=== PATIENT | male | born 1990 | race Two or more races ===

== ENCOUNTER → 2016-09-21 | Emergency (ER) | payer MEDICAID ==
[~2016-09-21] VITALS: Ht 180.3 cm; Wt 78.5 kg
[~2016-09-21] MED LIST: IV NS 0.9% 1,000 ML BAG IV ONE; IV NS 0.9% 1,000 ML ONE; IV SET PRIMARY PUMP SET 1 EA INFUS.SET MC ONE; MERC50TA; MESA400C; MORPHINE SULFATE INJ 2 MG/ML DISP.SYRIN IV ONE; MORPHINE SULFATE INJ 2 MG/ML DISP.SYRIN ONE; ONDANSETRON HCL/PF 4 MG/2 ML VIAL IVP ONE; ONDANSETRON HCL/PF 4 MG/2 ML VIAL ONE
[2016-09-21 08:27] LABS: BASOPHILS % (AUTO) 0.1 % (0.0-2.0); DIFF TOTAL % 100 %; EOSINOPHILS % (AUTO) 0.3 % (0.0-6.0); HEMATOCRIT 45 % (39-51); LYMPHOCYTES # (AUTO) 0.3 /CMM (0.8-4.8); LYMPHOCYTES % (AUTO) 2.9 % (20.0-44.0); MEAN CORPUSCULAR HEMOGLOBIN 31 PG (26.0-33.0); MEAN CORPUSCULAR HGB CONC 33 g/dl (31.0-36.0); MEAN CORPUSCULAR VOLUME 94 fL (80-96); MONOCYTES # (AUTO) 0.3 /CMM (0.1-1.30); MONOCYTES % (AUTO) 2.8 % (2.0-12.0); NEUTROPHILS # (AUTO) 8.6 /CMM (1.8-8.9); NEUTROPHILS % (AUTO) 93.9 % (43.0-81.0); PLATELET COUNT (AUTO) 164 /CMM (150-450); RED BLOOD CELL COUNT(AUTO) 4.79 MIL/uL (4.5-6.0); WHITE BLOOD COUNT (AUTO) 9.2 K/uL (4.3-11.0)
[2016-09-21 08:45] LABS: ALBUMIN 4.1 g/dL (3.4-5.0); BILIRUBIN,DIRECT 0.2 mg/dL (0.0-0.2); BILIRUBIN,TOTAL 4.7 mg/dL (0.2-1.0); CALCIUM, SERUM 9.3 mg/dL (8.5-10.1); CREATININE 0.9 mg/dL (0.6-1.3); INDIRECT BILIRUBIN 4.5 mg/dL (0.0-1.1); POTASSIUM 3.7 mmol/L (3.5-5.1); TOTAL PROTEIN, SERUM 7.7 g/dL (6.4-8.2)
[2016-09-21 10:17] VITALS: BP 103/70
== END | disposition home or self-care (01) ==
LOC: ER 07:48
DX: R11.2 Nausea with vomiting, unspecified (principal); K51.90 Ulcerative colitis, unspecified, without complications; F41.9 Anxiety disorder, unspecified
CPT/HCPCS: 36415; 80048-TC; 80076-TC; 83690-TC; 85025-TC; A4606; J2270; J2405; J7030; Z7610

== ENCOUNTER 2017-04-06 19:46 | Emergency (ER) | payer MEDICAID ==
[~2017-04-06] VITALS: Ht 180.3 cm; Wt 72.6 kg
[~2017-04-06 19:46] MED LIST changes: -IV NS 0.9% 1,000 ML BAG IV ONE; -IV NS 0.9% 1,000 ML ONE; -IV SET PRIMARY PUMP SET 1 EA INFUS.SET MC ONE; -MORPHINE SULFATE INJ 2 MG/ML DISP.SYRIN IV ONE; -MORPHINE SULFATE INJ 2 MG/ML DISP.SYRIN ONE; -ONDANSETRON HCL/PF 4 MG/2 ML VIAL IVP ONE; -ONDANSETRON HCL/PF 4 MG/2 ML VIAL ONE
[2017-04-06 20:42] VITALS: BP 113/58
== END 2017-04-06 20:46 | disposition home or self-care (01) ==
LOC: ER 19:51
DX: J02.9 Acute pharyngitis, unspecified (principal); F41.9 Anxiety disorder, unspecified
CPT/HCPCS: A4606; Z7610

== ENCOUNTER 2018-01-30 06:35 | Emergency (ER) | payer MEDICAID, OTHER ==
[~2018-01-30] VITALS: Ht 180.3 cm; Wt 77.1 kg
[2018-01-30 06:38] VITALS: BP 124/68
== END 2018-01-30 07:00 ==
LOC: ER 06:37
DX: Z04.1 Encounter for examination and observation following transport accident (principal); V89.2XXA Person injured in unspecified motor-vehicle accident, traffic, initial encounter; Y93.89 Activity, other specified; Y92.410 Unspecified street and highway as the place of occurrence of the external cause; Y99.8 Other external cause status
CPT/HCPCS: 99283; A4606; Z7610

== ENCOUNTER 2018-11-03 15:08 | Emergency (ER) | payer MEDICAID ==
[~2018-11-03] VITALS: Ht 180.3 cm; Wt 79.4 kg
[2018-11-03 15:24] VITALS: BP 119/72
[2018-11-03] MEDS ORDERED: DEXAMETHASONE SOD PHOSPHATE 10 MG/ML VIAL IM ONE (16:00)
[2018-11-03] MEDS ORDERED: DEXAMETHASONE SOD PHOSPHATE 10 MG/ML VIAL ONE (16:01)
--- NOTE | 2018-11-03 17:04 | NUR ---
Patient discharged to home in stable condition. Written and verbal after care instructions given. Patient verbalizes understanding of instruction.
== END 2018-11-03 17:05 | disposition home or self-care (01) ==
LOC: ER 15:13
DX: J03.90 Acute tonsillitis, unspecified (principal); Z60.2 Problems related to living alone; Z79.899 Other long term (current) drug therapy
CPT/HCPCS: 87070; 87880; 96372; 99283; J1100; 86403-TC

== ENCOUNTER 2018-11-17 12:22 | Emergency (ER) | payer MEDICAID, OTHER ==
[~2018-11-17] VITALS: Ht 180.3 cm; Wt 73.9 kg
--- NOTE | 2018-11-17 13:00 | NUR ---
patient presented to the ER c/o diarrhea, on room air, breathing evenly and unlabored. Connected to the monitor and pulse ox. Kept comfortable, will continue to monitor accordingly.
[2018-11-17] MEDS ORDERED: IV NS 0.9% 1,000 ML BAG IV ONE (13:30)
[2018-11-17] MEDS ORDERED: MORPHINE SULFATE INJ 2 MG/ML DISP.SYRIN IV ONE (13:30)
[2018-11-17] MEDS ORDERED: ONDANSETRON HCL/PF 4 MG/2 ML VIAL IVP ONE (13:30)
[2018-11-17 13:43] LABS: BASOPHILS # (AUTO) 0.1 /CMM (0.0-0.2); BASOPHILS % (AUTO) 0.5 % (0.0-2.0); EOSINOPHILS % (AUTO) 7.4 % (0.0-6.0); HEMATOCRIT 47 % (39-51); HEMOGLOBIN 15.9 g/dL (13.5-17.5); LYMPHOCYTES # (AUTO) 1.1 /CMM (0.8-4.8); LYMPHOCYTES % (AUTO) 10.2 % (20.0-44.0); MEAN CORPUSCULAR HGB CONC 34 g/dl (31.0-36.0); MEAN CORPUSCULAR VOLUME 90 fL (80-96); MONOCYTES # (AUTO) 1.6 /CMM (0.1-1.30); MONOCYTES % (AUTO) 14.8 % (2.0-12.0); NEUTROPHILS # (AUTO) 7.4 /CMM (1.8-8.9); NEUTROPHILS % (AUTO) 67.1 % (43.0-81.0); PLATELET COUNT (AUTO) 201 /CMM (150-450); RED BLOOD CELL COUNT(AUTO) 5.28 MIL/uL (4.5-6.0)
[2018-11-17] MEDS ORDERED: methylPREDNISolone SOD SUCC 125 MG/2ML VIAL ONE (13:55)
[2018-11-17] MEDS ORDERED: ONDANSETRON HCL/PF 4 MG/2 ML VIAL ONE (13:55)
[2018-11-17] MEDS ORDERED: MORPHINE SULFATE INJ 4 MG/ML DISP.SYRIN ONE (13:56)
[2018-11-17] MEDS ORDERED: methylPREDNISolone SOD SUCC 125 MG/2ML VIAL IV ONE (14:00)
[2018-11-17 14:04] LABS: ALBUMIN 3.4 g/dL (3.4-5.0); BILIRUBIN,DIRECT 0.2 mg/dL (0.0-0.2); BILIRUBIN,TOTAL 1.1 mg/dL (0.2-1.0); TOTAL PROTEIN, SERUM 7.5 g/dL (6.4-8.2)
--- NOTE | 2018-11-17 14:16 | NUR ---
urine collected and sent to lab.
[2018-11-17 14:20] LABS: APPEARANCE,URINE Clear (CLEAR); BILIRUBIN,URINE MODERATE (NEGATIVE); BLOOD, URINE Trace-intact Ery/uL (NEGATIVE); COLOR,URINE Dark Yellow (YELLOW); KETONES,URINE Trace (NEGATIVE); LEUKOCYTE ESTERASE ,URINE Negative (NEGATIVE); NITRITE, URINE Negative (NEGATIVE); PROTEIN,URINE 30 mg/dl (NEGATIVE); UGLUCOSE Negative (NEGATIVE); UROBILINOGEN,URINE 0.2 EU/dL (0.2)
[2018-11-17 14:34] LABS: BACTERIA,URINE Few /HPF (None Seen); MUCUS,URINE Many /LPF (None Seen); SQUAMOUS EPITHELIAL CELL,UR Rare /HPF (None Seen); WBC,URINE 0-2 /HPF (0-3)
[2018-11-17 15:13] VITALS: BP 122/66
--- NOTE | 2018-11-17 15:14 | NUR ---
Patient discharged to home in stable condition. Written and verbal after care instructions given. Patient verbalizes understanding of instruction.IV removed. Catheter intact and site benign. Pressure and 4x4 applied to site. No bleeding noted.
== END 2018-11-17 15:13 | disposition home or self-care (01) ==
LOC: ER 12:28
DX: R19.7 Diarrhea, unspecified (principal); K51.90 Ulcerative colitis, unspecified, without complications; Z60.2 Problems related to living alone
CPT/HCPCS: 36415; 80048; 80076; 81001; 83690; 85025; 96361; 96374; 96375; 99283; J2270; J2405; J2930; J7030; 81000-TC

== ENCOUNTER 2018-12-31 15:48 | Emergency (ER) | payer MEDICAID ==
[~2018-12-31] VITALS: Ht 180.3 cm; Wt 72.1 kg
--- NOTE | 2018-12-31 16:00 | NUR ---
PT PRESENTED TO THE ER WITH A C/O BLOODY STOOL W/ ABD PAIN. PT STATED THAT IT STARTED OUT DARK BROWN AND WAS SRIDHAR BLOOD TODAY. PT AMBULATED TO ER #3 WITH A STEADY GAIT. PT WAS PLACED ON THE MONITOR AND CONITNUOUS PULSE OX.
[2018-12-31] MEDS ORDERED: MORPHINE SULFATE INJ 2 MG/ML DISP.SYRIN IV ONE (16:30)
[2018-12-31] MEDS ORDERED: IV NS 0.9% 1,000 ML BAG IV ONE (16:30)
[2018-12-31] MEDS ORDERED: ONDANSETRON HCL/PF 4 MG/2 ML VIAL IVP ONE (16:30)
[2018-12-31 16:39] LABS: BASOPHILS % (AUTO) 0.2 % (0.0-2.0); EOSINOPHILS % (AUTO) 0.2 % (0.0-6.0); HEMATOCRIT 45 % (39-51); HEMOGLOBIN 14.7 g/dL (13.5-17.5); LYMPHOCYTES # (AUTO) 0.7 /CMM (0.8-4.8); LYMPHOCYTES % (AUTO) 9.9 % (20.0-44.0); MEAN CORPUSCULAR HGB CONC 33 g/dl (31.0-36.0); MEAN CORPUSCULAR VOLUME 91 fL (80-96); MONOCYTES # (AUTO) 1.3 /CMM (0.1-1.30); MONOCYTES % (AUTO) 16.8 % (2.0-12.0); NEUTROPHILS # (AUTO) 5.4 /CMM (1.8-8.9); NEUTROPHILS % (AUTO) 72.9 % (43.0-81.0); PLATELET COUNT (AUTO) 230 /CMM (150-450); WHITE BLOOD COUNT (AUTO) 7.5 K/uL (4.3-11.0)
[2018-12-31] MEDS ORDERED: methylPREDNISolone SOD SUCC 125 MG/2ML VIAL ONE (16:39)
[2018-12-31] MEDS ORDERED: ONDANSETRON HCL/PF 4 MG/2 ML VIAL ONE (16:39)
[2018-12-31] MEDS ORDERED: MORPHINE SULFATE INJ 4 MG/ML DISP.SYRIN ONE (16:39)
[2018-12-31 16:49] LABS: CALCIUM, SERUM 8.6 mg/dL (8.5-10.1); CREATININE 0.9 mg/dL (0.6-1.3); POTASSIUM 4.3 mmol/L (3.5-5.1)
[2018-12-31] MEDS ORDERED: MERC50TA PO (17:00)
[2018-12-31] MEDS ORDERED: MESA400C2 PO (17:00)
[2018-12-31] MEDS ORDERED: methylPREDNISolone SOD SUCC 125 MG/2ML VIAL IV ONE (17:00)
[2018-12-31] MEDS ORDERED: PRED20TA PO (17:00)
--- NOTE | 2018-12-31 17:46 | NUR ---
IV removed. Catheter intact and site benign. Pressure and 4x4 applied to site. No bleeding noted. Patient discharged to home in stable condition. Written and verbal after care instructions given. Patient verbalizes understanding of instruction AND RX. PT AMBULATED OUT WITH A STEADY GAIT. VSS. NAD NOTED.
[2018-12-31 17:47] LABS: BAND % (MANUAL) 4 % (0.0-5.0); EOSINOPHILS % (MANUAL) 1 % (0-4); LYMPHOCYTES % (MANUAL) 6 % (16-48); MONOCYTES % (MANUAL) 13 % (0-11.0); NEUTROPHILS % (MANUAL) 76 (42-76)
--- NOTE | 2018-12-31 17:48 | NUR ---
PT WAS INSTRUCTED NOT TO DRIVE.
[2018-12-31 17:50] VITALS: BP 127/75
[2018-12-31 18:21] LABS: OCCULT BLOOD STOOL NEGATIVE (NEGATIVE)
== END 2018-12-31 17:55 | disposition home or self-care (01) ==
LOC: ER 15:50
DX: K51.90 Ulcerative colitis, unspecified, without complications (principal); Z60.2 Problems related to living alone
CPT/HCPCS: 36415; 80048; 82272; 85025; 85730; 96374; 96375; 99283; J2270; J2405; J2930; J7030

== ENCOUNTER 2019-01-13 21:10 | Inpatient (IN) | payer MEDICAID ==
[~2019-01-13] VITALS: Ht 180.3 cm; Wt 72.9 kg
[~2019-01-13 21:10] MED LIST changes: -MERC50TA; +MERC50TA PO; -MESA400C; +MESA400C2 PO; +PRED20TA PO
--- NOTE | 2019-01-13 22:23 | NUR ---
BIBS. C.O "HAVING ABDOMINAL PAIN FOR AROUND X2 WEEKS" -SOB VSS AOX4. AMBULATORY -N.V
[2019-01-13] MEDS ORDERED: ONDANSETRON HCL/PF 4 MG/2 ML VIAL ONE (22:53)
[2019-01-13] MEDS ORDERED: MORPHINE SULFATE INJ 2 MG/ML DISP.SYRIN ONE (22:54)
[2019-01-13 22:59] LABS: APPEARANCE,URINE Clear (CLEAR); BILIRUBIN,URINE SMALL (NEGATIVE); BLOOD, URINE Negative Ery/uL (NEGATIVE); COLOR,URINE Amber (YELLOW); KETONES,URINE 40 (NEGATIVE); LEUKOCYTE ESTERASE ,URINE Negative (NEGATIVE); NITRITE, URINE Negative (NEGATIVE); PROTEIN,URINE 30 mg/dl (NEGATIVE); UGLUCOSE Negative (NEGATIVE); UROBILINOGEN,URINE 0.2 EU/dL (0.2)
[2019-01-13] MEDS ORDERED: ONDANSETRON HCL/PF - ER 4 MG/2 ML VIAL IV ONE (23:00)
[2019-01-13] MEDS ORDERED: MORPHINE SULFATE INJ 2 MG/ML DISP.SYRIN IV ONE (23:00)
[2019-01-13] MEDS ORDERED: IV NS 0.9% 1,000 ML BAG IV ONE (23:00)
[2019-01-13 23:05] LABS: BASOPHILS % (AUTO) 0.2 % (0.0-2.0); EOSINOPHILS % (AUTO) 2.9 % (0.0-6.0); HEMATOCRIT 44 % (39-51); HEMOGLOBIN 14.6 g/dL (13.5-17.5); LYMPHOCYTES # (AUTO) 1.3 /CMM (0.8-4.8); LYMPHOCYTES % (AUTO) 7.1 % (20.0-44.0); MEAN CORPUSCULAR HGB CONC 33 g/dl (31.0-36.0); MEAN CORPUSCULAR VOLUME 91 fL (80-96); MONOCYTES # (AUTO) 1.8 /CMM (0.1-1.30); NEUTROPHILS # (AUTO) 14.1 /CMM (1.8-8.9); NEUTROPHILS % (AUTO) 79.8 % (43.0-81.0); PLATELET COUNT (AUTO) 230 /CMM (150-450); RED BLOOD CELL COUNT(AUTO) 4.85 MIL/uL (4.5-6.0); WHITE BLOOD COUNT (AUTO) 17.7 K/uL (4.3-11.0)
[2019-01-13 23:14] LABS: CALCIUM, SERUM 8.7 mg/dL (8.5-10.1); CREATININE 0.7 mg/dL (0.6-1.3); POTASSIUM 3.2 mmol/L (3.5-5.1)
[2019-01-13 23:20] LABS: ALBUMIN 2.9 g/dL (3.4-5.0); BILIRUBIN,DIRECT 0.2 mg/dL (0.0-0.2); BILIRUBIN,TOTAL 1.3 mg/dL (0.2-1.0); TOTAL PROTEIN, SERUM 6.9 g/dL (6.4-8.2)
[2019-01-14] LABS: BACTERIA,URINE Few /HPF (None Seen); RBC,URINE 0-2 /HPF (0-2); SQUAMOUS EPITHELIAL CELL,UR Few /HPF (None Seen)
[2019-01-14 00:01] LABS: MUCUS,URINE Moderate /LPF (None Seen)
[2019-01-14] MEDS ORDERED: POTASSIUM CHLORIDE 20 MEQ TAB.PRT.SR PO ONE (01:00)
[2019-01-14] MEDS ORDERED: FLAGYL/NS RTU 500 MG/100 ML PIGGYBACK IV ONE (01:00)
[2019-01-14] MEDS ORDERED: methylPREDNISolone SOD SUCC 125 MG/2ML VIAL IV ONE (01:00)
--- NOTE | 2019-01-14 01:00 | NUR ---
CALLED RN SUP FOR M/S BED
--- NOTE | 2019-01-14 01:04 | NUR ---
PT ASSIGNED TO BED 207-1
--- NOTE | 2019-01-14 01:09 | NUR ---
CALLED [facility] FOR PANEL ADMISSION. WAITING FOR BAKERY CLERK HELLER CALL BACK.
--- NOTE | 2019-01-14 01:22 | NUR ---
2ND CALL TO [facility] FOR PANEL ADMISSION. WAITING FOR DIPLOMATIC INTERPRETER HELLER CALL BACK.
--- NOTE | 2019-01-14 01:25 | NUR ---
ANNA HELLER SPEAKING TO DR. GRACIA REGARDING ADMISSION/ PLAN OF CARE.
[2019-01-14] MEDS ORDERED: LEVOFLOXACIN 750 MG /D5W 150ML PIGGYBACK IV ONE (01:30)
--- NOTE | 2019-01-14 01:33 | NUR ---
REPORT GIVEN TO LAUREANO YANEZ.
[2019-01-14] MEDS ORDERED: HYDROCODONE/APAP 5/325MG 1 EACH TABLET PO PRN (02:00)
[2019-01-14] MEDS ORDERED: MAGNESIUM HYDROXIDE 30 ML UDC PO PRN (02:00)
[2019-01-14] MEDS ORDERED: MAG HYDROX/AL HYDROX/SIMETH 30 ML UDC PO PRN (02:00)
[2019-01-14] MEDS ORDERED: Z GUARD REMEDY 2 OZ OINT TP PRN (02:00)
[2019-01-14] MEDS ORDERED: ACETAMINOPHEN 325 MG TABLET PO PRN (02:00)
[2019-01-14] MEDS ORDERED: ONDANSETRON HCL/PF 4 MG/2 ML VIAL IVP PRN (02:00)
[2019-01-14] MEDS ORDERED: MORPHINE SULFATE INJ 2 MG/ML DISP.SYRIN IV PRN (02:00)
--- NOTE | 2019-01-14 02:00 | NUR ---
MS SENIOR ACCOUNT MANAGER NOTES Received patient from ER via wheelchair accompanied by 1 ER staff. Admitted to MS 207-2 due to abdominal pain under the service of ANNA Rogers. Transferred to bed comfortably. Admission routine done. Belongings inventory completed by the assigned GASOLINE POWER SHOVEL OPERATOR. Assisted patient to change with hospital gown. With disseminated tattoos, patient claimed no skin issues identified. With complaints of abdominal pain, managed with pain medication received from ER. With on going Flagyl noted with peripheral IV line line LFA G#20 infusing well as ordered. Admission orders noted and carried out. Kept clean, dry and comfortable, call light within easy reach. Will continue to monitor accordingly.
[2019-01-14] MEDS: IV NS 0.9% 1,000 ML IV PRN ×2 (02:25→20:38)
[2019-01-14] MEDS: LEVOFLOXACIN 750 MG /D5W 150ML 750 MG in PREMIX 1 EA IV SCH (02:46)
[2019-01-14] MEDS ORDERED: METRONIDAZOLE 500MG/ NS 100ML 100 ML IV ONE (04:31)
[2019-01-14] MEDS: METRONIDAZOLE 500MG/ NS 100ML 500 MG in PREMIX 1 EA IV SCH ×3 (05:02→17:49)
--- NOTE | 2019-01-14 06:19 | NUR ---
MS RN CLOSING NOTES Patient asleep at this time. Keep on NPO, offered ice chips for dry mouth. Patient had shower by himself. All due meds given as ordered, no ASE noted. On strict I&O and daily weight as ordered. Kept bed low and locked, siderails up, call light within easy reach. No episode of diarrhea/constipation noted within the shift. All nursing needs attended, no complaints made. Endorsed to the next shift.
--- NOTE | 2019-01-14 07:15 | NUR ---
MS RN NOTES PATIENT IN BED ALERT ORIENTED X 4. NO ACUTE DISTRESS NOTED. BREATHING UNLABORED. IV ACCESS PATENT AND INTACT, NO REDNESS NO SWELLING NOTED. SAFETY MEASURES IN PLACE. CALL LIGHT WITHIN REACH. WILL CONTINUE TO MONITOR ACCORDINGLY.
[2019-01-14 07:36] LABS: BASOPHILS % (AUTO) 0.1 % (0.0-2.0); EOSINOPHILS % (AUTO) 0.3 % (0.0-6.0); HEMATOCRIT 43 % (39-51); HEMOGLOBIN 13.9 g/dL (13.5-17.5); LYMPHOCYTES # (AUTO) 0.4 /CMM (0.8-4.8); MEAN CORPUSCULAR HGB CONC 32 g/dl (31.0-36.0); MEAN CORPUSCULAR VOLUME 92 fL (80-96); MONOCYTES # (AUTO) 0.1 /CMM (0.1-1.30); MONOCYTES % (AUTO) 0.9 % (2.0-12.0); NEUTROPHILS # (AUTO) 12.7 /CMM (1.8-8.9); NEUTROPHILS % (AUTO) 95.7 % (43.0-81.0); PLATELET COUNT (AUTO) 242 /CMM (150-450); WHITE BLOOD COUNT (AUTO) 13.3 K/uL (4.3-11.0)
[2019-01-14 07:56] LABS: ALBUMIN 2.6 g/dL (3.4-5.0); BILIRUBIN,TOTAL 1.3 mg/dL (0.2-1.0); CALCIUM, SERUM 8.6 mg/dL (8.5-10.1); CREATININE 0.8 mg/dL (0.6-1.3); MAGNESIUM 1.8 mg/dL (1.8-2.4); POTASSIUM 4.7 mmol/L (3.5-5.1); TOTAL PROTEIN, SERUM 6.5 g/dL (6.4-8.2)
[2019-01-14 08:00] VITALS: BP 95/60
[2019-01-14] MEDS ORDERED: MESA4ENE4 RC (08:14)
[2019-01-14] MEDS ORDERED: PANTOPRAZOLE 40 MG VIAL IV SCH (09:00)
[2019-01-14] MEDS: methylPREDNISolone SOD SUCC 40 MG/ML VIAL IV SCH ×3 (09:28→17:46)
[2019-01-14] MEDS: NEXIUM 40 MG VIAL IV SCH (10:06)
[2019-01-14 16:00] VITALS: BP 108/55
--- NOTE | 2019-01-14 19:00 | NUR ---
MS RN NOTES PATIENT IN BED ALERT ORIENTED X 4. NO ACUTE DISTRESS NOTED. BREATHING UNLABORED. IV ACCESS PATENT AND INTACT, NO REDNESS NO SWELLING NOTED. DUE MEDICATIONS GIVEN, NO ASE NOTED. NEEDS ATTENDED AND ANTICIPATED. KEPT CLEAN DRY AND COMFORTABLE. SAFETY MEASURES IN PLACE. CALL LIGHT WITHIN REACH. WILL ENDORSE TO NIGHT NURSE FOR CONTINUITY OF CARE.
--- NOTE | 2019-01-14 19:30 | NUR ---
RECEIVED PATIENT AWAKE IN BED. AO X 3, ABLE TO MAKE NEEDS KNOWN. NO ACUTE DISTRESS NOTED. MONITORED FOR PAIN. IV SITE PATENT, INTACT; IVF INFUSING ORDERED. SAFETY REMINDERS GIVEN. ON LOW BED WITH BILATERAL UPPER SIDE RAILS UP. CALL ROGER WITHIN EASY REACH. WILL CONTINUE TO MONITOR.
[2019-01-14 20:00] VITALS: BP 120/65
[2019-01-14 20:31] VITALS: BP 120/65
[2019-01-14 20:53] LABS: OCCULT BLOOD STOOL POSITIVE (NEGATIVE)
[2019-01-15] MEDS: METRONIDAZOLE 500MG/ NS 100ML 500 MG in PREMIX 1 EA IV SCH ×3 (00:12→11:40)
[2019-01-15] MEDS: LEVOFLOXACIN 750 MG /D5W 150ML 750 MG in PREMIX 1 EA IV SCH (01:18)
--- NOTE | 2019-01-15 06:00 | NUR ---
PATIENT ASLEEP, EASILY AROUSABLE. RESPIRATIONS EVEN. NO SIGNS OF PAIN NOTED. DUE MEDS GIVEN WITH NO ASE NOTED. NEEDS ATTENDED. COMFORT MEASURES AND SAFETY PRECAUTIONS IN PLACE. WILL GIVE REPORT TO DAY SHIFT FOR CONTINUITY OF CARE.
[2019-01-15 06:29] LABS: BASOPHILS % (AUTO) 0.2 % (0.0-2.0); EOSINOPHILS % (AUTO) 0.1 % (0.0-6.0); HEMATOCRIT 41 % (39-51); HEMOGLOBIN 13.4 g/dL (13.5-17.5); LYMPHOCYTES # (AUTO) 1.1 /CMM (0.8-4.8); MEAN CORPUSCULAR HGB CONC 33 g/dl (31.0-36.0); MEAN CORPUSCULAR VOLUME 91 fL (80-96); MONOCYTES % (AUTO) 18.4 % (2.0-12.0); NEUTROPHILS # (AUTO) 7.6 /CMM (1.8-8.9); NEUTROPHILS % (AUTO) 71.3 % (43.0-81.0); PLATELET COUNT (AUTO) 263 /CMM (150-450); RED BLOOD CELL COUNT(AUTO) 4.48 MIL/uL (4.5-6.0); WHITE BLOOD COUNT (AUTO) 10.7 K/uL (4.3-11.0)
[2019-01-15 06:49] LABS: CALCIUM, SERUM 8.4 mg/dL (8.5-10.1); CREATININE 0.7 mg/dL (0.6-1.3); MAGNESIUM 1.9 mg/dL (1.8-2.4); PHOSPHORUS 3.7 mg/dL (2.5-4.9); POTASSIUM 3.7 mmol/L (3.5-5.1)
[2019-01-15 06:50] LABS: THYROID STIMULATING HORMONE 0.39 uIU/mL (0.358-3.74)
--- NOTE | 2019-01-15 07:12 | NUR ---
MS RN NOTES PATIENT IN BED EYES CLOSED EASY TO AROUSE. RESPOND TO VERBAL AND TACTILE STIMULI. NO ACUTE DISTRESS NOTED. BREATHING UNLABORED. IV ACCESS PATENT AND INTACT, NO REDNESS NO SWELLING NOTED. SAFETY MEASURES IN PLACE. CALL LIGHT WITHIN REACH. WILL CONTINUE TO MONITOR ACCORDINGLY.
[2019-01-15 08:00] VITALS: BP 92/48
[2019-01-15 09:12] LABS: BAND % (MANUAL) 2 % (0.0-5.0); LYMPHOCYTES % (MANUAL) 9 % (16-48); MONOCYTES % (MANUAL) 13 % (0-11.0); NEUTROPHILS % (MANUAL) 76 (42-76)
[2019-01-15] MEDS: NEXIUM 40 MG VIAL IV SCH (09:20)
[2019-01-15] MEDS: methylPREDNISolone SOD SUCC 40 MG/ML VIAL IV SCH ×2 (09:24→13:40)
--- NOTE | 2019-01-15 14:02 | NUR ---
Social service consult requested by ANNA Rogers for marijuana use. Pt. is a 28 year old male who was admitted to [facility] for Ulcerative colitis. SW met with pt. bedside. Pt. is alert and oriented x 4. Pt. is pleasant and cooperative with SW during the assessment. Pt. has tattoos all over his arms and chest. Pt. lives with is sister Joy at [address] [place] [facility] [place] emergency contact is his sister Joy Cannon . 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 Pt. denies any alcohol use. Pt. denies using marijuana chronically. Pt. states he smokes marijuana 2 to 3 times per week. Pt. declined resources for drug rehab programs. No other social service needs are requested at this time. SW is available, if needed.
--- NOTE | 2019-01-15 14:04 | NUR ---
MS RN NOTES SEEN AND EVALUATED BY DR TG LOUIS WITH NEW ORDERS MADE. NOTED AND CARRIED OUT.
--- NOTE | 2019-01-15 16:00 | NUR ---
MS MILITARY LAWYER NOTES PATIENT DISCHARGE HOME WITH STABLE VITAL SIGNS, ALERT ORIENTED X 4, NO ACUTE DISTRESS NOTED. BREATHING UNLABORED. DISCHARGE INSTRUCTIONS GIVEN TO THE PATIENT INCLUDING NEW PRESCRIPTIONS AND FOLLOW UP WITH MD, VERBALIZED UNDERSTANDING. ALL BELONGINGS ACCOUNTED FOR. IV ACCESS REMOVED, NO REDNESS, NO BLEEDING, NO SWELLING NOTED. ASSISTED TO THE LOBBY, PICKED UP VIA PRIVATE CAR IN STABLE CONDITION.
== END 2019-01-15 17:05 | disposition home or self-care (01) | DRG 245 ==
LOC: ER 21:10 → MEDSG2 01-14 01:07
PROVIDERS: ADMIT Nurse Practitioner Acute Care; ATTEND Nurse Practitioner Acute Care
DX: K51.911 Ulcerative colitis, unspecified with rectal bleeding (principal); D72.829 Elevated white blood cell count, unspecified; E87.6 Hypokalemia; Z79.891 Long term (current) use of opiate analgesic; F12.90 Cannabis use, unspecified, uncomplicated; I88.0 Nonspecific mesenteric lymphadenitis; R19.7 Diarrhea, unspecified
CPT/HCPCS: 36415; 80048-TC; 80053-TC; 80061-TC; 80076-TC; 80305; 81000-TC; 82272-TC; 83690-TC; 83735-TC; 84100-TC; 84443-TC; 85025-TC; 87045-TC; 87081-TC; 87086-TC; A4216; G0378; G0480; J1956; J2270; J2405; J2920; J2930; J3490; J7030

== ENCOUNTER 2019-03-17 09:42 | Emergency (ER) | payer MEDICAID ==
[~2019-03-17] VITALS: Ht 180.3 cm; Wt 70.3 kg
[~2019-03-17 09:42] MED LIST changes: -MESA400C2 PO; +MESA4ENE4 RC
--- NOTE | 2019-03-17 10:26 | NUR ---
PATIENT ARRIVED AT UNIT AMBULATORY WITH C/O EPIGASTRIC PAIN W, NAUSEA AND DIARRHEA X 2 DAYS. ACCOMPANIED TO BED. NO ACUTE DISTRESS. AWAITING
[2019-03-17] MEDS ORDERED: KETOROLAC TROMETHAMINE 15 MG/ML VIAL ONE (11:03)
[2019-03-17] MEDS: IV NS 0.9% 1,000 ML BAG IV ONE (11:04)
[2019-03-17] MEDS: KETOROLAC TROMETHAMINE INJ 30 MG/ML VIAL IV ONE (11:05)
[2019-03-17 11:06] LABS: BASOPHILS % (AUTO) 0.3 % (0.0-2.0); EOSINOPHILS % (AUTO) 0.5 % (0.0-6.0); HEMATOCRIT 49 % (39-51); HEMOGLOBIN 16.3 g/dL (13.5-17.5); LYMPHOCYTES # (AUTO) 0.6 /CMM (0.8-4.8); LYMPHOCYTES % (AUTO) 5.2 % (20.0-44.0); MEAN CORPUSCULAR HGB CONC 33 g/dl (31.0-36.0); MEAN CORPUSCULAR VOLUME 93 fL (80-96); MONOCYTES # (AUTO) 1.3 /CMM (0.1-1.30); NEUTROPHILS # (AUTO) 9.7 /CMM (1.8-8.9); PLATELET COUNT (AUTO) 191 /CMM (150-450); RED BLOOD CELL COUNT(AUTO) 5.29 MIL/uL (4.5-6.0); WHITE BLOOD COUNT (AUTO) 11.6 K/uL (4.3-11.0)
[2019-03-17 11:13] LABS: CALCIUM, SERUM 9.3 mg/dL (8.5-10.1); CREATININE 0.9 mg/dL (0.6-1.3); POTASSIUM 4.4 mmol/L (3.5-5.1)
[2019-03-17 11:14] LABS: APPEARANCE,URINE Clear (CLEAR); BILIRUBIN,URINE SMALL (NEGATIVE); BLOOD, URINE Negative Ery/uL (NEGATIVE); COLOR,URINE Yellow (YELLOW); KETONES,URINE 80 (NEGATIVE); LEUKOCYTE ESTERASE ,URINE Negative (NEGATIVE); NITRITE, URINE Negative (NEGATIVE); PROTEIN,URINE Negative (NEGATIVE); UGLUCOSE Negative (NEGATIVE); UROBILINOGEN,URINE 0.2 EU/dL (0.2)
[2019-03-17 11:16] LABS: BACTERIA,URINE Rare /HPF (None Seen); RBC,URINE 0-2 /HPF (0-2); SQUAMOUS EPITHELIAL CELL,UR Rare /HPF (None Seen); URINE AMORPHOUS PHOSPHATES Rare /HPF (None Seen); WBC,URINE 0-2 /HPF (0-3)
[2019-03-17 11:18] LABS: ALBUMIN 3.9 g/dL (3.4-5.0); BILIRUBIN,DIRECT 0.2 mg/dL (0.0-0.2); BILIRUBIN,TOTAL 2.4 mg/dL (0.2-1.0); TOTAL PROTEIN, SERUM 7.4 g/dL (6.4-8.2)
--- NOTE | 2019-03-17 12:41 | NUR ---
dcIV removed. Catheter intact and site benign. Pressure and 4x4 applied to site. No bleeding noted.Patient discharged to home in stable condition. Written and verbal after care instructions given. Written prescription provided to patient. Patient verbalizes understanding of instruction.
[2019-03-17 12:44] VITALS: BP 113/64
== END 2019-03-17 12:45 | disposition home or self-care (01) ==
LOC: ER 09:42
DX: R10.84 Generalized abdominal pain (principal); R19.7 Diarrhea, unspecified; Z60.2 Problems related to living alone
CPT/HCPCS: 36415; 80048; 80076; 81001; 83690; 85025; 96361; 96374; 99283; J1885; J7030; 81000-TC

== ENCOUNTER 2019-06-09 12:22 | Emergency (ER) | payer MEDICAID ==
[~2019-06-09] VITALS: Ht 180.3 cm; Wt 76.2 kg
[2019-06-09] MEDS ORDERED: methylPREDNISolone SOD SUCC 125 MG/2ML VIAL IV ONE (13:00)
[2019-06-09] MEDS ORDERED: IV NS 0.9% 1,000 ML BAG IV ONE (13:00)
[2019-06-09] MEDS ORDERED: ONDANSETRON HCL/PF 4 MG/2 ML VIAL IVP ONE (13:00)
[2019-06-09] MEDS ORDERED: KETOROLAC TROMETHAMINE INJ 30 MG/ML VIAL IV ONE (13:00)
[2019-06-09] MEDS ORDERED: KETOROLAC TROMETHAMINE INJ 30 MG/ML VIAL ONE (13:09)
[2019-06-09] MEDS ORDERED: methylPREDNISolone SOD SUCC 125 MG/2ML VIAL ONE (13:09)
[2019-06-09] MEDS ORDERED: ONDANSETRON HCL/PF 4 MG/2 ML VIAL ONE (13:10)
[2019-06-09 13:16] LABS: BASOPHILS % (AUTO) 0.4 % (0.0-2.0); EOSINOPHILS % (AUTO) 3.3 % (0.0-6.0); HEMATOCRIT 46 % (39-51); HEMOGLOBIN 15.1 g/dL (13.5-17.5); LYMPHOCYTES # (AUTO) 1.7 /CMM (0.8-4.8); MEAN CORPUSCULAR HGB CONC 33 g/dl (31.0-36.0); MEAN CORPUSCULAR VOLUME 89 fL (80-96); MONOCYTES # (AUTO) 1.5 /CMM (0.1-1.30); MONOCYTES % (AUTO) 20.7 % (2.0-12.0); NEUTROPHILS # (AUTO) 3.9 /CMM (1.8-8.9); NEUTROPHILS % (AUTO) 52.6 % (43.0-81.0); PLATELET COUNT (AUTO) 191 /CMM (150-450); WHITE BLOOD COUNT (AUTO) 7.5 K/uL (4.3-11.0)
--- NOTE | 2019-06-09 13:18 | NUR ---
Pt c/o loose stool x 2 days, epigastric pain, mild vomiting since last night. Pt AAOx4, vss. Denies cp, sob, dizziness @ this time. Pt seen & eval'd by HARRY Worley. Medicated as ordered, pt carlos well. Will cont to monitor.
[2019-06-09 13:25] LABS: CALCIUM, SERUM 8.8 mg/dL (8.5-10.1); CREATININE 0.9 mg/dL (0.6-1.3); POTASSIUM 3.7 mmol/L (3.5-5.1)
[2019-06-09 13:31] LABS: ALBUMIN 3.6 g/dL (3.4-5.0); BILIRUBIN,DIRECT 0.2 mg/dL (0.0-0.2); BILIRUBIN,TOTAL 1.3 mg/dL (0.2-1.0); TOTAL PROTEIN, SERUM 7.2 g/dL (6.4-8.2)
[2019-06-09 14:03] LABS: OCCULT BLOOD STOOL POSITIVE (NEGATIVE)
[2019-06-09 14:27] LABS: BAND % (MANUAL) 7 % (0.0-5.0); EOSINOPHILS % (MANUAL) 3 % (0-4); LYMPHOCYTES % (MANUAL) 25 % (16-48); MONOCYTES % (MANUAL) 15 % (0-11.0); NEUTROPHILS % (MANUAL) 50 (42-76)
[2019-06-09 15:18] VITALS: BP 124/75
== END 2019-06-09 15:19 | disposition home or self-care (01) ==
LOC: ER 12:23
DX: R19.7 Diarrhea, unspecified (principal); K51.90 Ulcerative colitis, unspecified, without complications; Z60.2 Problems related to living alone; Z79.899 Other long term (current) drug therapy
CPT/HCPCS: 36415; 80048; 80076; 82272; 85025; 85652; 86140; 89055; 96361; 96374; 96375; 99283; J1885; J2405; J2930; J7030

== ENCOUNTER 2019-06-16 15:50 | Emergency (ER) | payer MEDICAID ==
[~2019-06-16] VITALS: Ht 180.3 cm; Wt 74.4 kg
--- NOTE | 2019-06-16 16:02 | NUR ---
BIB SELD C/O ABDOMINAL PAIN AND DIARRHEA STARTED YESTERDAY. +BLOOD IN THE STOOL, TO ER BED 4, HOOKED TO MONITOR, CHANGED TO HOSPITAL GOWN, PROVIDED W WARM BLANKET, PATIENT AOx4 , BREATHING EVEN AND UNLABORED, AWAITING MD LEYVA.
--- NOTE | 2019-06-16 16:20 | NUR ---
DR GRACIA AT BEDSIDE
[2019-06-16 16:39] LABS: BASOPHILS # (AUTO) 0.1 /CMM (0.0-0.2); BASOPHILS % (AUTO) 0.8 % (0.0-2.0); EOSINOPHILS % (AUTO) 4.5 % (0.0-6.0); HEMATOCRIT 46 % (39-51); HEMOGLOBIN 15.1 g/dL (13.5-17.5); LYMPHOCYTES % (AUTO) 15.5 % (20.0-44.0); MEAN CORPUSCULAR HGB CONC 33 g/dl (31.0-36.0); MEAN CORPUSCULAR VOLUME 89 fL (80-96); MONOCYTES # (AUTO) 1.9 /CMM (0.1-1.30); MONOCYTES % (AUTO) 14.1 % (2.0-12.0); NEUTROPHILS # (AUTO) 8.6 /CMM (1.8-8.9); NEUTROPHILS % (AUTO) 65.1 % (43.0-81.0); PLATELET COUNT (AUTO) 212 /CMM (150-450); RED BLOOD CELL COUNT(AUTO) 5.18 MIL/uL (4.5-6.0); WHITE BLOOD COUNT (AUTO) 13.2 K/uL (4.3-11.0)
[2019-06-16] MEDS ORDERED: MORPHINE SULFATE INJ 2 MG/ML DISP.SYRIN ONE (16:41)
[2019-06-16] MEDS ORDERED: ONDANSETRON HCL/PF 4 MG/2 ML VIAL ONE (16:41)
[2019-06-16] MEDS: IV NS 0.9% 1,000 ML BAG IV ONE ×2 (16:45→17:46)
[2019-06-16] MEDS: MORPHINE SULFATE INJ 2 MG/ML DISP.SYRIN IV ONE (16:45)
[2019-06-16] MEDS: ONDANSETRON HCL/PF - ER 4 MG/2 ML VIAL IV ONE (16:46)
--- NOTE | 2019-06-16 16:47 | NUR ---
STOOL SAMPLE AND URINE SAMPLE SENT TO LAB
[2019-06-16 17:11] LABS: APPEARANCE,URINE Clear (CLEAR); BILIRUBIN,URINE Negative (NEGATIVE); BLOOD, URINE Negative Ery/uL (NEGATIVE); COLOR,URINE Yellow (YELLOW); KETONES,URINE Negative (NEGATIVE); LEUKOCYTE ESTERASE ,URINE Negative (NEGATIVE); NITRITE, URINE Negative (NEGATIVE); PROTEIN,URINE Negative (NEGATIVE); UGLUCOSE Negative (NEGATIVE); UROBILINOGEN,URINE 0.2 EU/dL (0.2)
[2019-06-16 17:12] LABS: CALCIUM, SERUM 8.4 mg/dL (8.5-10.1); POTASSIUM 3.7 mmol/L (3.5-5.1)
[2019-06-16 17:17] LABS: ALBUMIN 2.9 g/dL (3.4-5.0); BILIRUBIN,DIRECT 0.1 mg/dL (0.0-0.2); BILIRUBIN,TOTAL 0.6 mg/dL (0.2-1.0); TOTAL PROTEIN, SERUM 6.4 g/dL (6.4-8.2)
[2019-06-16] MEDS ORDERED: LEVOFLOXACIN (750 MG) 750 MG TABLET ONE (18:57)
[2019-06-16] MEDS ORDERED: HYDROMORPHONE 1 MG/1 ML DISP.SYRIN ONE (18:57)
[2019-06-16] MEDS ORDERED: METRONIDAZOLE 500 MG TABLET ONE (18:57)
[2019-06-16] MEDS: HYDROMORPHONE INJ 0.5 MG/0.5 ML SYRINGE IV ONE (19:02)
[2019-06-16] MEDS: METRONIDAZOLE 500 MG TABLET PO ONE (19:02)
[2019-06-16] MEDS: LEVOFLOXACIN (750 MG) 750 MG TABLET PO STA (19:02)
--- NOTE | 2019-06-16 19:32 | NUR ---
IV removed. Catheter intact and site benign. Pressure and 4x4 applied to site. No bleeding noted.Patient discharged to home in stable condition. Written and verbal after care instructions given. Patient verbalizes understanding of instruction.
[2019-06-16 19:36] VITALS: BP 102/64
[2019-06-16 23:22] LABS: OCCULT BLOOD STOOL POSITIVE (NEGATIVE)
== END 2019-06-16 19:39 | disposition home or self-care (01) ==
LOC: ER 15:52
DX: K51.90 Ulcerative colitis, unspecified, without complications (principal); F12.90 Cannabis use, unspecified, uncomplicated; R19.7 Diarrhea, unspecified; Z98.890 Other specified postprocedural states; Z60.2 Problems related to living alone; Z79.899 Other long term (current) drug therapy
CPT/HCPCS: 36415; 80048; 80076; 81001; 82272; 83690; 85025; 87015; 87045; 87427 ×3; 87493; 89055; 96361; 96374; 96375; 99283; J1170; J2270; J2405; J7030 ×2; 81000-TC

== ENCOUNTER 2019-06-22 12:52 | Emergency (ER) | payer MEDICAID ==
[~2019-06-22] VITALS: Ht 180.3 cm; Wt 72.1 kg
[2019-06-22] MEDS ORDERED: KETOROLAC TROMETHAMINE INJ 30 MG/ML VIAL IV ONE (13:30)
[2019-06-22] MEDS ORDERED: ONDANSETRON HCL/PF 4 MG/2 ML VIAL IVP ONE (13:30)
[2019-06-22] MEDS ORDERED: MORPHINE SULFATE INJ 2 MG/ML DISP.SYRIN IV ONE (13:30)
[2019-06-22] MEDS ORDERED: IV NS 0.9% 1,000 ML BAG IV ONE (13:30)
[2019-06-22] MEDS ORDERED: methylPREDNISolone SOD SUCC 125 MG/2ML VIAL ONE (13:38)
[2019-06-22] MEDS ORDERED: MORPHINE SULFATE INJ 4 MG/ML DISP.SYRIN ONE (13:38)
[2019-06-22] MEDS ORDERED: ONDANSETRON HCL/PF 4 MG/2 ML VIAL ONE (13:38)
[2019-06-22 13:56] LABS: APPEARANCE,URINE Clear (CLEAR); BILIRUBIN,URINE SMALL (NEGATIVE); BLOOD, URINE Negative Ery/uL (NEGATIVE); COLOR,URINE Dark (YELLOW); KETONES,URINE Negative (NEGATIVE); LEUKOCYTE ESTERASE ,URINE Trace (NEGATIVE); NITRITE, URINE Negative (NEGATIVE); PH,URINE 5.5 (5.0-8.0); PROTEIN,URINE Negative (NEGATIVE); UGLUCOSE Negative (NEGATIVE); UROBILINOGEN,URINE 0.2 EU/dL (0.2)
[2019-06-22 13:59] LABS: BASOPHILS # (AUTO) 0.1 /CMM (0.0-0.2); BASOPHILS % (AUTO) 0.4 % (0.0-2.0); EOSINOPHILS % (AUTO) 2.4 % (0.0-6.0); HEMATOCRIT 48 % (39-51); HEMOGLOBIN 15.5 g/dL (13.5-17.5); LYMPHOCYTES # (AUTO) 2.4 /CMM (0.8-4.8); LYMPHOCYTES % (AUTO) 13.5 % (20.0-44.0); MEAN CORPUSCULAR HGB CONC 33 g/dl (31.0-36.0); MEAN CORPUSCULAR VOLUME 89 fL (80-96); MONOCYTES % (AUTO) 11.3 % (2.0-12.0); NEUTROPHILS # (AUTO) 12.8 /CMM (1.8-8.9); NEUTROPHILS % (AUTO) 72.4 % (43.0-81.0); PLATELET COUNT (AUTO) 221 /CMM (150-450); RED BLOOD CELL COUNT(AUTO) 5.37 MIL/uL (4.5-6.0); WHITE BLOOD COUNT (AUTO) 17.7 K/uL (4.3-11.0)
[2019-06-22] MEDS ORDERED: methylPREDNISolone SOD SUCC 125 MG/2ML VIAL IV ONE (14:00)
--- NOTE | 2019-06-22 14:00 | NUR ---
urine and stool collected and sent to lab.
[2019-06-22 14:03] LABS: RBC,URINE 0-1 /HPF (0-2)
[2019-06-22 14:04] LABS: BACTERIA,URINE Rare /HPF (None Seen); SQUAMOUS EPITHELIAL CELL,UR Few /HPF (None Seen)
[2019-06-22 14:06] LABS: CALCIUM, SERUM 8.7 mg/dL (8.5-10.1); POTASSIUM 3.6 mmol/L (3.5-5.1)
[2019-06-22 14:12] LABS: ALBUMIN 3.1 g/dL (3.4-5.0); BILIRUBIN,DIRECT 0.2 mg/dL (0.0-0.2); BILIRUBIN,TOTAL 1.8 mg/dL (0.2-1.0); TOTAL PROTEIN, SERUM 6.6 g/dL (6.4-8.2)
--- NOTE | 2019-06-22 14:21 | NUR ---
PT PLACED ON MONITOR AND PULSE OX. RESTING IN BED COMFORTABLY. NO ACUTE DISTRESS NOTED.
[2019-06-22 14:41] LABS: OCCULT BLOOD STOOL POSITIVE (NEGATIVE)
--- NOTE | 2019-06-22 15:27 | NUR ---
Patient discharged to home in stable condition. Written and verbal after care instructions given. Patient verbalizes understanding of instruction. IV removed. Catheter intact and site benign. Pressure and 4x4 applied to site. No bleeding noted. PT ambulatory with a steady gait.
[2019-06-22 15:35] VITALS: BP 128/76
== END 2019-06-22 15:36 | disposition home or self-care (01) ==
LOC: ER 12:52
DX: K51.90 Ulcerative colitis, unspecified, without complications (principal); R19.7 Diarrhea, unspecified; Z60.2 Problems related to living alone; Z79.899 Other long term (current) drug therapy
CPT/HCPCS: 36415; 80048; 80076; 81001; 82272; 83690; 85025; 87015; 87045; 87427 ×2; 89055; 96361; 96374; 96375; 99283; J2270; J2405; J2930; J7030; 81000-TC

== ENCOUNTER 2020-04-21 05:30 | Emergency (ER) | payer MEDICAID ==
[~2020-04-21] VITALS: Ht 180.3 cm; Wt 75.7 kg
--- NOTE | 2020-04-21 05:59 | NUR ---
BIBS FOR C/O SORETHROAT , ABD PAIN AND FEVER FOR THE "WHOLE NIGHT" ALSO W/ C/O WEAKNESS. PT IS ON AMOXICILLIN FOR THROAT INFX WHICH WAS ORDERED IN AN URGENT CARE 2 DAYS AGO . PT AMBULATORY TO BED 6. WS PLACED ON A MONITOR. VSS EXCEPT THE FEVER. WILL CONT TO MONITOR ,
--- NOTE | 2020-04-21 06:46 | NUR ---
DR HERRERA AT BED SIDE FOR ASSESSMENT
[2020-04-21] MEDS ORDERED: KETOROLAC TROMETHAMINE 15 MG/ML VIAL ONE (06:58)
[2020-04-21] MEDS ORDERED: DEXAMETHASONE SOD PHOSPHATE 10 MG/ML VIAL ONE (06:58)
[2020-04-21] MEDS ORDERED: MAG HYDROX/AL HYDROX/SIMETH 30 ML UDC ONE (06:59)
[2020-04-21] MEDS ORDERED: LIDOCAINE VISCOUS 2% UD 15 ML UDC ONE (06:59)
[2020-04-21] MEDS ORDERED: ONDANSETRON HCL/PF 4 MG/2 ML VIAL ONE (06:59)
[2020-04-21] MEDS ORDERED: ACETAMINOPHEN 325 MG TABLET ONE (06:59)
[2020-04-21] MEDS ORDERED: IV NS 0.9% 1,000 ML IV ONE (07:00)
[2020-04-21] MEDS ORDERED: MAG HYDROX/AL HYDROX/SIMETH 30 ML UDC PO ONE (07:00)
[2020-04-21] MEDS ORDERED: ONDANSETRON HCL/PF 4 MG/2 ML VIAL IV ONE (07:00)
[2020-04-21] MEDS ORDERED: KETOROLAC TROMETHAMINE INJ 30 MG/ML VIAL IV ONE (07:00)
[2020-04-21] MEDS ORDERED: ACETAMINOPHEN 325 MG TABLET PO ONE (07:00)
[2020-04-21] MEDS ORDERED: DEXAMETHASONE SOD PHOSPHATE 10 MG/ML VIAL IV ONE (07:00)
[2020-04-21] MEDS ORDERED: PIPERACILLIN /TAZOBACTAM 3.375 G in IV D5W 50 ML IV ONE (07:00)
[2020-04-21] MEDS ORDERED: LIDOCAINE VISCOUS 2% UD 15 ML UDC MM ONE (07:00)
[2020-04-21] MEDS ORDERED: PIPERACILLIN /TAZOBACTAM 3.375 G VIAL IV ONE ×2 (07:02→07:17)
--- NOTE | 2020-04-21 08:19 | NUR ---
Updated with Plan of care. States "feel much better" NO acute changes, respirations even/unlabored. VSS
[2020-04-21 08:29] VITALS: BP 116/73
--- NOTE | 2020-04-21 08:30 | NUR ---
Patient discharged to home in stable condition. Written and verbal after care instructions given. Patient verbalizes understanding of instruction. Addendum: 04/21/20 at 0833 by YAMILKA HL on R ACV discontinued. Cannula intact
== END 2020-04-21 08:30 | disposition home or self-care (01) ==
LOC: ER 05:36
DX: J02.8 Acute pharyngitis due to other specified organisms (principal); Z60.2 Problems related to living alone; Z79.899 Other long term (current) drug therapy
CPT/HCPCS: 87070; 87880; 96365; 96375; 99284; J1100; J1885; J2405; J2543 ×3; J7030; J7060; 86403-TC

== ENCOUNTER 2020-10-25 20:49 | Emergency (ER) | payer MEDICAID ==
[~2020-10-25] VITALS: Ht 180.3 cm; Wt 77.1 kg
--- NOTE | 2020-10-25 20:51 | NUR ---
PT AAOX4. AMBULATORY WITH STEADY GAIT. BIBSELF C/O ABDOMINAL PAIN WITH BLOOD IN STOOL X2 WEEK. PT PALCED IN BED 10 ON MONITOR AND PULSE OX. LINE ESTABLISHED RAC 20G, BLOOD WORK COLLECTED, SENT TO LAB.
[2020-10-25] MEDS ORDERED: methylPREDNISolone SOD SUCC 125 MG/2ML VIAL ONE (22:19)
[2020-10-25 22:27] LABS: BASOPHILS # (AUTO) 0.1 /CMM (0.0-0.2); BASOPHILS % (AUTO) 0.6 % (0.0-2.0); EOSINOPHILS % (AUTO) 3.3 % (0.0-6.0); HEMATOCRIT 46 % (39-51); HEMOGLOBIN 15.3 g/dL (13.5-17.5); LYMPHOCYTES # (AUTO) 2.1 /CMM (0.8-4.8); LYMPHOCYTES % (AUTO) 22.5 % (20.0-44.0); MEAN CORPUSCULAR HGB CONC 33 g/dl (31.0-36.0); MEAN CORPUSCULAR VOLUME 88 fL (80-96); MONOCYTES # (AUTO) 1.1 /CMM (0.1-1.30); MONOCYTES % (AUTO) 11.8 % (2.0-12.0); NEUTROPHILS # (AUTO) 5.9 /CMM (1.8-8.9); NEUTROPHILS % (AUTO) 61.8 % (43.0-81.0); PLATELET COUNT (AUTO) 202 /CMM (150-450); RED BLOOD CELL COUNT(AUTO) 5.23 MIL/uL (4.5-6.0); WHITE BLOOD COUNT (AUTO) 9.5 K/uL (4.3-11.0)
[2020-10-25] MEDS ORDERED: methylPREDNISolone SOD SUCC 125 MG/2ML VIAL IV ONE (22:30)
[2020-10-25] MEDS ORDERED: IV NS 0.9% 1,000 ML BAG IV ONE (22:30)
[2020-10-25 22:37] LABS: CALCIUM, SERUM 8.8 mg/dL (8.5-10.1); POTASSIUM 4.1 mmol/L (3.5-5.1)
--- NOTE | 2020-10-25 22:43 | NUR ---
PT RESTING COMFORTABLY. VSS.
[2020-10-25 22:49] LABS: ALBUMIN 3.5 g/dL (3.4-5.0); BILIRUBIN,DIRECT 0.1 mg/dL (0.0-0.2); BILIRUBIN,TOTAL 0.6 mg/dL (0.2-1.0); TOTAL PROTEIN, SERUM 7.5 g/dL (6.4-8.2)
[2020-10-25] MEDS ORDERED: METH4TAB3 PO (23:03)
[2020-10-25 23:26] VITALS: BP 125/72
--- NOTE | 2020-10-25 23:26 | NUR ---
IV removed. Catheter intact and site benign. Pressure and 4x4 applied to site. No bleeding noted.
--- NOTE | 2020-10-25 23:26 | NUR ---
Patient discharged to home in stable condition. Written and verbal after care instructions given. Patient verbalizes understanding of instruction and RX. Pt ambulated out of ED. VSS.
== END 2020-10-25 23:27 | disposition home or self-care (01) ==
LOC: ER 20:49
DX: K51.90 Ulcerative colitis, unspecified, without complications (principal); Z60.2 Problems related to living alone; Z79.899 Other long term (current) drug therapy
CPT/HCPCS: 36415; 80048; 80076; 83690; 85025; 85730; 96361; 96374; 99283; J2930; J7030

== ENCOUNTER 2021-04-29 20:38 | Emergency (ER) | payer MEDICAID ==
[~2021-04-29] VITALS: Ht 175.3 cm; Wt 84.8 kg
[~2021-04-29 20:38] MED LIST changes: +METH4TAB3 PO
[2021-04-29] MEDS ORDERED: IV NS 0.9% 1,000 ML BAG IV ONE (21:00)
[2021-04-29] MEDS ORDERED: MORPHINE SULFATE INJ 2 MG/ML DISP.SYRIN IV ONE (21:00)
[2021-04-29] MEDS ORDERED: ONDANSETRON HCL/PF 4 MG/2 ML VIAL IVP ONE (21:00)
--- NOTE | 2021-04-29 21:00 | NUR ---
PT BIBSELF C/O ABD PAIN AND DIARRHEA. PT AAOX4 BREATHING EVENLY AND UNLABORED. PT ATTACHED TO MONITOR AND POX. PA AT BEDSIDE. PT GIVEN BLANKET AND CALL LIGHT WITHIN REACH
[2021-04-29] MEDS ORDERED: MORPHINE SULFATE INJ 4 MG/ML DISP.SYRIN ONE (21:08)
[2021-04-29] MEDS ORDERED: ONDANSETRON HCL/PF 4 MG/2 ML VIAL ONE (21:08)
--- NOTE | 2021-04-29 21:20 | NUR ---
BLOOD SENT TO LAB
[2021-04-29 21:26] LABS: BASOPHILS % (AUTO) 0.3 % (0.0-2.0); EOSINOPHILS % (AUTO) 0.1 % (0.0-6.0); HEMATOCRIT 49 % (39-51); HEMOGLOBIN 15.7 g/dL (13.5-17.5); LYMPHOCYTES # (AUTO) 0.9 K/uL (0.8-4.8); LYMPHOCYTES % (AUTO) 6.1 % (20.0-44.0); MEAN CORPUSCULAR HGB CONC 32 g/dl (31.0-36.0); MEAN CORPUSCULAR VOLUME 89 fL (80-96); MONOCYTES # (AUTO) 0.8 K/uL (0.1-1.30); NEUTROPHILS # (AUTO) 12.2 K/uL (1.8-8.9); NEUTROPHILS % (AUTO) 87.5 % (43.0-81.0); PLATELET COUNT (AUTO) 231 K/uL (150-450); RED BLOOD CELL COUNT(AUTO) 5.46 MIL/uL (4.5-6.0)
[2021-04-29 21:39] LABS: CALCIUM, SERUM 8.7 mg/dL (8.5-10.1); CREATININE 1.1 mg/dL (0.6-1.3); POTASSIUM 3.9 mmol/L (3.5-5.1)
--- NOTE | 2021-04-29 21:40 | NUR ---
PT PROVIDED WITH WARM BLANKETS FOR COMFORT.
[2021-04-29 21:45] LABS: ALBUMIN 3.9 g/dL (3.4-5.0); BILIRUBIN,DIRECT 0.2 mg/dL (0.0-0.2); BILIRUBIN,TOTAL 1.4 mg/dL (0.2-1.0); TOTAL PROTEIN, SERUM 7.9 g/dL (6.4-8.2)
[2021-04-29] MEDS ORDERED: methylPREDNISolone SOD SUCC 125 MG/2ML VIAL ONE (22:17)
[2021-04-29] MEDS ORDERED: PRED20TA PO (22:24)
[2021-04-29] MEDS ORDERED: ONDA4TAB5 PO (22:24)
[2021-04-29] MEDS ORDERED: DIPH1TAB PO (22:24)
[2021-04-29] MEDS ORDERED: methylPREDNISolone SOD SUCC 125 MG/2ML VIAL IV ONE (22:30)
--- NOTE | 2021-04-29 22:31 | NUR ---
Patient discharged to home in stable condition. Written and verbal after care instructions given. Patient verbalizes understanding of instruction. IV removed. Catheter intact and site benign. Pressure and 4x4 applied to site. No bleeding noted. Pt ambulatory with a steady gait. Pt picked up by family
[2021-04-29 22:37] VITALS: BP 132/70
== END 2021-04-29 22:31 | disposition home or self-care (01) ==
LOC: ER 20:46
DX: A08.4 Viral intestinal infection, unspecified (principal); Z60.2 Problems related to living alone; Z79.899 Other long term (current) drug therapy
CPT/HCPCS: 36415; 80048; 80076; 83690; 85025; 96361; 96374; 96375; 99284; J2270; J2405; J2930; J7030

== ENCOUNTER 2021-08-29 20:41 | Emergency (ER) | payer MEDICAID ==
[~2021-08-29] VITALS: Ht 180.3 cm; Wt 77.1 kg
[2021-08-29 20:41] VITALS: BP 127/79
[~2021-08-29 20:41] MED LIST changes: +DIPH1TAB PO; +ONDA4TAB5 PO
--- NOTE | 2021-08-29 23:48 | NUR ---
Patient discharged to home in stable condition. Written and verbal after care instructions given. Patient verbalizes understanding of instruction.
== END 2021-08-29 23:49 | disposition home or self-care (01) ==
LOC: ER 20:42
DX: L94.2 Calcinosis cutis (principal); B07.0 Plantar wart; Z87.19 Personal history of other diseases of the digestive system; Z60.2 Problems related to living alone; Z79.52 Long term (current) use of systemic steroids; Z79.899 Other long term (current) drug therapy
CPT/HCPCS: 73650-TC

== ENCOUNTER 2024-10-21 14:11 | Emergency (ER) | payer MEDICAID ==
[~2024-10-21] VITALS: Ht 180.3 cm; Wt 73.9 kg
[2024-10-21] MEDS ORDERED: methylPREDNISolone SOD SUCC 125 MG/2ML VIAL ONE (14:57)
[2024-10-21] MEDS ORDERED: KETOROLAC TROMETHAMINE 15 MG/ML VIAL ONE (14:57)
[2024-10-21] MEDS: KETOROLAC TROMETHAMINE 15 MG/ML VIAL IV ONE (15:00)
[2024-10-21] MEDS: IV NS 0.9% 1,000 ML BAG IV ONE (15:00)
[2024-10-21] MEDS: methylPREDNISolone SOD SUCC 125 MG/2ML VIAL IV ONE (15:00)
[2024-10-21 15:06] LABS: BASOPHILS % (AUTO) 0.3 % (0.0-2.0); EOSINOPHILS # (AUTO) 0.4 K/uL (0.0-0.7); EOSINOPHILS % (AUTO) 3.5 % (0.0-6.0); HEMATOCRIT 42 % (39-51); HEMOGLOBIN 13.8 g/dL (13.5-17.5); LYMPHOCYTES # (AUTO) 2.4 K/uL (0.8-4.8); LYMPHOCYTES % (AUTO) 19.3 % (20.0-44.0); MEAN CORPUSCULAR HEMOGLOBIN 29 PG (26.0-33.0); MEAN CORPUSCULAR HGB CONC 33 g/dl (31.0-36.0); MEAN CORPUSCULAR VOLUME 86 fL (80-96); MONOCYTES # (AUTO) 1.5 K/uL (0.1-1.30); MONOCYTES % (AUTO) 12.2 % (2.0-12.0); NEUTROPHILS % (AUTO) 64.7 % (43.0-81.0); PLATELET COUNT (AUTO) 286 K/uL (150-450); RED BLOOD CELL COUNT(AUTO) 4.83 MIL/uL (4.5-6.0); RED CELL DISTRIBUTION WIDTH 13.4 % (11.5-15.0); WHITE BLOOD COUNT (AUTO) 12.3 K/uL (4.3-11.0)
[2024-10-21 15:21] LABS: CALCIUM, SERUM 8.6 mg/dL (8.5-10.1); POTASSIUM 3.7 mmol/L (3.5-5.1)
[2024-10-21 15:27] LABS: ALBUMIN 2.9 g/dL (3.4-5.0); BILIRUBIN,DIRECT 0.2 mg/dL (0.0-0.2); BILIRUBIN,TOTAL 0.8 mg/dL (0.2-1.0)
[2024-10-21] MEDS ORDERED: CIPR-262 PO (15:38)
[2024-10-21] MEDS ORDERED: METH4TAB3 PO (15:38)
[2024-10-21] MEDS ORDERED: METR500T PO (15:38)
[2024-10-21] MEDS ORDERED: DICY10CA37 PO (15:38)
[2024-10-21 17:01] VITALS: BP 116/69; TEMP 98.1; O2SAT 99
== END 2024-10-21 17:02 | disposition home or self-care (01) ==
LOC: ER 14:18
DX: K51.911 Ulcerative colitis, unspecified with rectal bleeding (principal); F19.10 Other psychoactive substance abuse, uncomplicated; Z79.52 Long term (current) use of systemic steroids; Z60.2 Problems related to living alone
CPT/HCPCS: 99284; 96374; 96361; 96375; 85025; 80048; 83690; 80076; 36415; J1885; J2919; J7030

== ENCOUNTER 2024-11-03 16:52 | Emergency (ER) | payer MEDICAID ==
[~2024-11-03] VITALS: Ht 180.3 cm; Wt 75.7 kg
[~2024-11-03 16:52] MED LIST changes: +CIPR-262 PO; +DICY10CA37 PO; +METR500T PO
[2024-11-03] MEDS ORDERED: FAMOTIDINE/PF INJ 20 MG/2 ML VIAL IV ONE (19:34)
[2024-11-03] MEDS ORDERED: MORPHINE SULFATE INJ 2 MG/ML DISP.SYRIN ONE (19:34)
[2024-11-03 19:35] LABS: BASOPHILS # (AUTO) 0.1 K/uL (0.0-0.2); BASOPHILS % (AUTO) 0.4 % (0.0-2.0); EOSINOPHILS # (AUTO) 0.1 K/uL (0.0-0.7); EOSINOPHILS % (AUTO) 1.1 % (0.0-6.0); HEMATOCRIT 45 % (39-51); HEMOGLOBIN 14.8 g/dL (13.5-17.5); LYMPHOCYTES # (AUTO) 1.5 K/uL (0.8-4.8); LYMPHOCYTES % (AUTO) 10.8 % (20.0-44.0); MEAN CORPUSCULAR HEMOGLOBIN 29 PG (26.0-33.0); MEAN CORPUSCULAR HGB CONC 33 g/dl (31.0-36.0); MEAN CORPUSCULAR VOLUME 88 fL (80-96); MONOCYTES # (AUTO) 1.2 K/uL (0.1-1.30); MONOCYTES % (AUTO) 8.6 % (2.0-12.0); NEUTROPHILS # (AUTO) 10.9 K/uL (1.8-8.9); NEUTROPHILS % (AUTO) 79.1 % (43.0-81.0); PLATELET COUNT (AUTO) 255 K/uL (150-450); RED CELL DISTRIBUTION WIDTH 13.8 % (11.5-15.0); WHITE BLOOD COUNT (AUTO) 13.8 K/uL (4.3-11.0)
[2024-11-03] MEDS: IV NS 0.9% 1,000 ML BAG IV ONE (19:49)
[2024-11-03] MEDS: FAMOTIDINE/PF INJ 20 MG/2 ML VIAL IV ONE (19:50)
[2024-11-03] MEDS: MORPHINE SULFATE INJ 2 MG/ML DISP.SYRIN IV ONE (19:50)
[2024-11-03 19:51] LABS: CALCIUM, SERUM 9.4 mg/dL (8.5-10.1); CREATININE 1.1 mg/dL (0.6-1.3); POTASSIUM 4.2 mmol/L (3.5-5.1)
[2024-11-03 19:56] LABS: ALBUMIN 3.5 g/dL (3.4-5.0); BILIRUBIN,DIRECT 0.3 mg/dL (0.0-0.2); BILIRUBIN,TOTAL 1.8 mg/dL (0.2-1.0); TOTAL PROTEIN, SERUM 7.3 g/dL (6.4-8.2)
[2024-11-03 20:02] LABS: APPEARANCE,URINE CLEAR (CLEAR); BILIRUBIN,URINE NEGATIVE (NEGATIVE); BLOOD, URINE NEGATIVE Ery/uL (NEGATIVE); COLOR,URINE YELLOW (YELLOW); KETONES,URINE NEGATIVE (NEGATIVE); LEUKOCYTE ESTERASE ,URINE NEGATIVE (NEGATIVE); NITRITE, URINE NEGATIVE (NEGATIVE); PROTEIN,URINE NEGATIVE (NEGATIVE); UGLUCOSE NEGATIVE (NEGATIVE); UROBILINOGEN,URINE 0.2 EU/dL (0.2)
[2024-11-03 21:06] VITALS: BP 61/67; TEMP 98.3; O2SAT 99
== END 2024-11-03 21:06 | disposition home or self-care (01) ==
LOC: ER 16:56
DX: R10.84 Generalized abdominal pain (principal); G43.909 Migraine, unspecified, not intractable, without status migrainosus; K51.90 Ulcerative colitis, unspecified, without complications; Z79.52 Long term (current) use of systemic steroids; Z79.899 Other long term (current) drug therapy; Z60.2 Problems related to living alone
CPT/HCPCS: 99285; 96374; 96361; 96375; 74176; 85025; 80048; 87086; 83690; 80076; 81003; 36415; J1308; J7030; J2270

== ENCOUNTER 2024-11-23 13:44 | Emergency (ER) | payer MEDICAID ==
[~2024-11-23] VITALS: Ht 180.3 cm; Wt 75.3 kg
[2024-11-23 14:07] VITALS: TEMP 98.5
[2024-11-23] MEDS: IV NS 0.9% 1,000 ML BAG IV ONE (14:30)
[2024-11-23 14:34] LABS: BASOPHILS # (AUTO) 0.1 K/uL (0.0-0.2); BASOPHILS % (AUTO) 0.6 % (0.0-2.0); EOSINOPHILS # (AUTO) 0.3 K/uL (0.0-0.7); EOSINOPHILS % (AUTO) 3.2 % (0.0-6.0); HEMATOCRIT 45 % (39-51); LYMPHOCYTES # (AUTO) 2.2 K/uL (0.8-4.8); LYMPHOCYTES % (AUTO) 22.4 % (20.0-44.0); MEAN CORPUSCULAR HEMOGLOBIN 29 PG (26.0-33.0); MEAN CORPUSCULAR HGB CONC 33 g/dl (31.0-36.0); MEAN CORPUSCULAR VOLUME 87 fL (80-96); MONOCYTES # (AUTO) 0.9 K/uL (0.1-1.30); MONOCYTES % (AUTO) 9.4 % (2.0-12.0); NEUTROPHILS # (AUTO) 6.2 K/uL (1.8-8.9); NEUTROPHILS % (AUTO) 64.4 % (43.0-81.0); PLATELET COUNT (AUTO) 270 K/uL (150-450); RED BLOOD CELL COUNT(AUTO) 5.15 MIL/uL (4.5-6.0); RED CELL DISTRIBUTION WIDTH 14.1 % (11.5-15.0); WHITE BLOOD COUNT (AUTO) 9.6 K/uL (4.3-11.0)
[2024-11-23] MEDS ORDERED: FAMOTIDINE/PF INJ 20 MG/2 ML VIAL IV ONE (14:34)
[2024-11-23] MEDS: FAMOTIDINE/PF INJ 20 MG/2 ML VIAL IV ONE (14:40)
[2024-11-23 14:41] LABS: CREATININE 0.9 mg/dL (0.6-1.3)
[2024-11-23 14:47] LABS: ALBUMIN 3.4 g/dL (3.4-5.0); BILIRUBIN,DIRECT 0.2 mg/dL (0.0-0.2); BILIRUBIN,TOTAL 1.1 mg/dL (0.2-1.0); TOTAL PROTEIN, SERUM 7.8 g/dL (6.4-8.2)
[2024-11-23 15:34] VITALS: BP 110/70; O2SAT 98
== END 2024-11-23 15:28 | disposition home or self-care (01) ==
LOC: ER 13:51
DX: R10.84 Generalized abdominal pain (principal); K92.1 Melena; K51.911 Ulcerative colitis, unspecified with rectal bleeding; Z79.52 Long term (current) use of systemic steroids; Z60.2 Problems related to living alone; Z79.899 Other long term (current) drug therapy
CPT/HCPCS: 99285; 74176; 96374; 96361; 85025; 80048; 87070; 83690; 80076; 36415; 87880; J1308; J7030; 86403-TC

== ENCOUNTER 2024-12-15 23:17 | Emergency (ER) | payer MEDICAID ==
[~2024-12-15] VITALS: Ht 180.3 cm; Wt 72.6 kg
[2024-12-15 23:37] VITALS: BP 106/72; TEMP 98.3; O2SAT 98
[2024-12-16] MEDS ORDERED: IV NS 0.9% 1,000 ML BAG IV ONE
== END 2024-12-15 23:53 | disposition home or self-care (01) ==
LOC: ER 23:19
DX: R19.7 Diarrhea, unspecified (principal); K51.90 Ulcerative colitis, unspecified, without complications; Z79.52 Long term (current) use of systemic steroids; Z79.899 Other long term (current) drug therapy; Z60.2 Problems related to living alone
CPT/HCPCS: 87045-TC

== ENCOUNTER 2025-01-02 23:14 | Emergency (ER) | payer MEDICAID ==
[~2025-01-02] VITALS: Ht 157.5 cm; Wt 77.1 kg
[2025-01-03] MEDS ORDERED: FAMOTIDINE/PF INJ 20 MG/2 ML VIAL IV ONE (00:17)
[2025-01-03 00:45] LABS: BASOPHILS # (AUTO) 0.1 K/uL (0.0-0.2); BASOPHILS % (AUTO) 0.5 % (0.0-2.0); EOSINOPHILS # (AUTO) 0.4 K/uL (0.0-0.7); EOSINOPHILS % (AUTO) 3.1 % (0.0-6.0); HEMATOCRIT 44 % (39-51); HEMOGLOBIN 14.3 g/dL (13.5-17.5); LYMPHOCYTES # (AUTO) 2.7 K/uL (0.8-4.8); LYMPHOCYTES % (AUTO) 21.1 % (20.0-44.0); MEAN CORPUSCULAR HEMOGLOBIN 28 PG (26.0-33.0); MEAN CORPUSCULAR HGB CONC 33 g/dl (31.0-36.0); MEAN CORPUSCULAR VOLUME 87 fL (80-96); MONOCYTES # (AUTO) 1.2 K/uL (0.1-1.30); MONOCYTES % (AUTO) 9.5 % (2.0-12.0); NEUTROPHILS # (AUTO) 8.3 K/uL (1.8-8.9); NEUTROPHILS % (AUTO) 65.8 % (43.0-81.0); PLATELET COUNT (AUTO) 270 K/uL (150-450); RED BLOOD CELL COUNT(AUTO) 5.05 MIL/uL (4.5-6.0); RED CELL DISTRIBUTION WIDTH 14.6 % (11.5-15.0); WHITE BLOOD COUNT (AUTO) 12.6 K/uL (4.3-11.0)
[2025-01-03 00:58] LABS: ALBUMIN 3.5 g/dL (3.4-5.0); BILIRUBIN,DIRECT 0.1 mg/dL (0.0-0.2); BILIRUBIN,TOTAL 0.6 mg/dL (0.2-1.0); CALCIUM, SERUM 8.7 mg/dL (8.5-10.1); POTASSIUM 3.9 mmol/L (3.5-5.1); TOTAL PROTEIN, SERUM 7.7 g/dL (6.4-8.2)
[2025-01-03] MEDS: IV NS 0.9% 1,000 ML BAG IV ONE (01:00)
[2025-01-03 01:01] LABS: INR 1.02 (0.91-1.10); PARTIAL THROMBOPLASTIN TIME 28.4 SEC (24.3-34.3); PROTHROMBIN TIME 10.8 SECS (9.2-11.1)
[2025-01-03] MEDS: FAMOTIDINE/PF INJ 20 MG/2 ML VIAL IV ONE (01:01)
[2025-01-03 02:34] VITALS: BP 125/80; TEMP 98; O2SAT 99
[2025-01-03 03:07] LABS: APPEARANCE,URINE CLEAR (CLEAR); BILIRUBIN,URINE NEGATIVE (NEGATIVE); BLOOD, URINE NEGATIVE Ery/uL (NEGATIVE); COLOR,URINE YELLOW (YELLOW); KETONES,URINE NEGATIVE (NEGATIVE); LEUKOCYTE ESTERASE ,URINE NEGATIVE (NEGATIVE); NITRITE, URINE NEGATIVE (NEGATIVE); PROTEIN,URINE NEGATIVE (NEGATIVE); UGLUCOSE NEGATIVE (NEGATIVE); UROBILINOGEN,URINE 0.2 EU/dL (0.2)
== END 2025-01-03 02:35 | disposition home or self-care (01) ==
LOC: ER 23:18
DX: R10.84 Generalized abdominal pain (principal); K92.1 Melena; K51.911 Ulcerative colitis, unspecified with rectal bleeding; Z79.52 Long term (current) use of systemic steroids
CPT/HCPCS: 99283; 96374; 96361; 85025; 80048; 83690; 80076; 81003; 36415; 85730; 86850; J1308; J7030; 87086-TC

== ENCOUNTER 2025-04-02 15:25 | Emergency (ER) | payer MEDICAID ==
[~2025-04-02] VITALS: Ht 180.3 cm; Wt 74.4 kg
[2025-04-02] MEDS ORDERED: FAMOTIDINE/PF INJ 20 MG/2 ML VIAL IV ONE ×2 (16:03)
[2025-04-02] MEDS ORDERED: PANTOPRAZOLE 40 MG VIAL ONE (16:03)
[2025-04-02] MEDS ORDERED: KETOROLAC TROMETHAMINE 15 MG/ML VIAL ONE (16:03)
[2025-04-02] MEDS ORDERED: ONDANSETRON HCL/PF 4 MG/2 ML VIAL ONE (16:03)
[2025-04-02] MEDS: IV NS 0.9% 1,000 ML BAG IV ONE (16:16)
[2025-04-02] MEDS: FAMOTIDINE/PF INJ 20 MG/2 ML VIAL IV ONE (16:16)
[2025-04-02] MEDS: PANTOPRAZOLE 40 MG VIAL IV ONE (16:16)
[2025-04-02] MEDS: KETOROLAC TROMETHAMINE 15 MG/ML VIAL IV ONE (16:17)
[2025-04-02] MEDS: ONDANSETRON HCL/PF 4 MG/2 ML VIAL IVP ONE (16:17)
[2025-04-02 16:22] LABS: APPEARANCE,URINE CLEAR (CLEAR); BLOOD, URINE NEGATIVE Ery/uL (NEGATIVE); LEUKOCYTE ESTERASE ,URINE NEGATIVE (NEGATIVE); NITRITE, URINE NEGATIVE (NEGATIVE); UGLUCOSE NEGATIVE (NEGATIVE)
[2025-04-02 16:32] LABS: PLATELET COUNT (AUTO) 213 K/uL (150-450); RED BLOOD CELL COUNT(AUTO) 4.96 MIL/uL (4.5-6.0); RED CELL DISTRIBUTION WIDTH 14.0 % (11.5-15.0); WHITE BLOOD COUNT (AUTO) 11.7 K/uL (4.3-11.0)
[2025-04-02 16:38] LABS: CALCIUM, SERUM 8.8 mg/dL (8.5-10.1); CREATININE 1.0 mg/dL (0.6-1.3); SODIUM SERUM 139.0 mmol/L (136-145); UREA NITROGEN, BLOOD 9.0 mg/dL (7-18)
[2025-04-02 16:44] LABS: ASPARTATE AMINOTRANSFERASE 13.0 U/L (15-37); TOTAL PROTEIN, SERUM 6.9 g/dL (6.4-8.2)
[2025-04-02] MEDS ORDERED: dexaMETHasone SOD PHOSPHATE 4 MG/ML VIAL ONE (16:57)
[2025-04-02] MEDS: dexaMETHasone SOD PHOSPHATE 4 MG/ML VIAL IM ONE (17:00)
[2025-04-02 19:20] VITALS: BP 110/65; TEMP 98.7; O2SAT 99
== END 2025-04-02 19:21 | disposition home or self-care (01) ==
LOC: ER 15:33
DX: R10.84 Generalized abdominal pain (principal); R19.7 Diarrhea, unspecified; K92.1 Melena; F19.10 Other psychoactive substance abuse, uncomplicated; Z79.52 Long term (current) use of systemic steroids; Z87.19 Personal history of other diseases of the digestive system; Z60.2 Problems related to living alone
CPT/HCPCS: 99284; 96374; 96375; 96361; 85025; 80048; 83690; 80076; 81003; 36415; 96372; J1885; J1100; J1308 ×2; J2405; J7030; J2470